=== PATIENT | female | born 1985 | race Two or more races ===

== ENCOUNTER 2025-04-27 11:17 | Inpatient (IN) | payer BC, OTHER ==
[~2025-04-27] VITALS: Ht 152.4 cm; Wt 79.4 kg
--- NOTE | 2025-04-27 11:35 | ED.PDOC ---
GI ASSESSMENT HPI Comments This is a 39 year old female presenting to the ED with chief complaint of abdominal pain. Patient reports that she has been experiencing epigastric abdominal pain with radiation to her back and associated nausea since 3am this morning. Patient relays that she had eaten greasy food last night and believes she is experiencing gallbladder pain. Patient states that she had similar pain 6 months ago after eating greasy food before going to bed. Patient denies any vomiting, diarrhea, fever, or chills. Chief Complaint: Abdominal Pain Time Seen by MD: 11:34 Reviewed Notes: Nurses Notes, Medications, Allergies Allergies: Coded Allergies: No Known Drug Allergy (Verified Allergy, Unknown, 04/27/25) Information Source: Patient Mode of Arrival: Ambulatory Timing: Days Duration: Since onset Prehospital treatment: None Quality: Sharp Vomitus: None Stool: Normal Severity: Moderate Recent: None Recent Hx of: None Pain Location: Epigastric Modifying Factors: Nothing Associated sign and symptoms: Nausea, Abdominal Pain Past Medical History PAST MEDICAL HISTORY: Denies Surgical History: Denies all surgeries BASS STRING WINDER History: No Pertinent BASS STRING WINDER History Family History Family History: Reviewed,noncontributory to illness Social History Smoker: Non-Smoker Alcohol: Denies ETOH Use Drugs: Denies Drug Use Lives In: Home Constitutional: denies: chills, diaphoresis, fatigue, fever, malaise, sweats, weakness, others EENTM: denies: blurred vision, double vision, ear bleeding, ear discharge, ear drainage, ear pain, ear ringing, eye pain, eye redness, hearing loss, mouth pain, mouth swelling, nasal discharge, nose bleeding, nose congestion, nose pain, photophobia, tearing, throat pain, throat swelling, voice changes, others Respiratory: denies: cough, hemoptysis, orthopnea, SOB at rest, shortness of breath, SOB with excertion, stridor, wheezing, others Cardiovascular: denies: chest pain, dizzy spells, diaphoresis, Dyspnea on exertion, edema, irregular heart beat, left arm pain, lightheadedness, palpitations, PND, syncope, others Gastrointestinal: reports: abdominal pain, nausea; denies: abdomen distended, blood streaked bowels, constipated, diarrhea, dysphagia, difficulty swallowing, hematemesis, melena, poor appetite, poor fluid intake, rectal bleeding, rectal p ain, vomiting, others Genitourinary: denies: abnormal vagina bleeding, burning, dyspareunia, dysuria, flank pain, frequency, hematuria, incontinence, pain, , vagina discharge, urgency, others Neurological: denies: dizziness, fainting, headache, left sided numbness, left sided weakness, numbness, paresthesia, pre-existing deficit, right sided numbness, right sided weakness, seizure, speech problems, tingling, tremors, weakness, others Musculoskeletal: denies: back pain, gout, joint pain, joint swelling, muscle pain, muscle stiffness, neck pain, others Integumetry: denies: bruises, change in color, change in hair/nails, dryness, laceration, lesions, lumps, rash, wounds, others Allergic/Immunocompromised: denies: Difficulty Healing, Frequent Infections, Hives, Itching, others Hematologic/Lymphatic: denies: anemia, blood clots, easy bleeding, easy bruising, swollen glands, others Endocrine: denies: excessive hunger, excessive sweating, excessive thirst, excessive urination, flushing, intolerance to cold, intolerance to heat, unexplained weight gain, unexplained weight loss, others Psychiatric: denies: anxiety, bipolar disorder, depression, hopeless, panic disorder, schizophrenia, sleepless, suicidal, others All Other Systems: Reviewed and Negative Physical Exam General Appearance: Moderate Distress, Normal HEENT: Normal ENT Inspection, Pharynx Normal, TMs Normal Neck: Full Range of Motion, Non-Tender, Normal, Normal Inspection Respiratory: Chest Non-Tender, Lungs Clear, No Accessory Muscle Use, No Respiratory Distress, Normal Breath Sounds Cardiovascular: No Edema, No JVD, No Murmur, No Gallop, Normal Peripheral Pulses, Regular Rate/Rhythm Breast Exam: Deferred Gastrointestinal: Diffuse, No Organomegaly, No Pulsatile Mass, Normal Bowel Sounds, Soft Genitalia: Deferred Pelvic: Deferred Rectal: Deferred Extremities: No calf tenderness, Normal capillary refill, Normal inspection, Normal range of motion, Non-tender, No pedal edema Musculoskeletal : Apperance: Normal Neurologic: Alert, sidehand II-XII nml as Tested, No Motor Deficits, Normal Affect, Normal Mood, No Sensory Deficits Cerebellar Function: Normal Reflexes: Normal Skin: Dry, Normal Color, Warm Peripheral Pulses: 3+ Radial (R), 3+ Radial (L) Lymphatic: No Adenopathy Was a procedure done? Was a procedure done?: No GI differential Dx Differential Diagnosis: Constipation, Diverticular disease, Esophagitis, Gastritis/PUD, Gastroenteritis X-Ray, Labs, Meds, VS Vital Signs Date Time Temp Pulse Resp B/P (MAP) Pulse Ox O2 Delivery O2 Flow Rate FiO2 04/27/25 13:45 64 20 136/84 04/27/25 13:30 64 20 100 Room Air* 0 21 04/27/25 13:30 98.0 64 20 136/84 (101) 100 98.0 04/27/25 11:18 97.1 65 16 130/91 98 97.1 Lab Test 04/27/25 12:57 04/27/25 11:49 Range/Units White Blood Count 13.4 H 4.4-10.8 10^3/uL Red Blood Count 4.87 4.0-5.20 10^6/uL Hemoglobin 14.8 12.2-16.2 g/dL Hematocrit 43.0 36.0-46.0 % Mean Corpuscular Volume 88.4 80.0-100.0 fL Mean Corpuscular Hemoglobin 30.5 28.0-32.0 pg Mean Corpuscular Hemoglobin Concent 34.5 32.0-36.0 g/dL Red Cell Distribution Width 13.8 11.8-14.3 % Platelet Count 328 140-450 10^3/uL Mean Platelet Volume 7.8 6.9-10.8 fL Neutrophils (%) (Auto) 86.7 H 37.0-80.0 % Lymphocytes (%) (Auto) 8.8 L 10.0-50.0 % Monocytes (%) (Auto) 3.2 0.0-12.0 % Eosinophils (%) (Auto) 0.3 0.0-7.0 % Basophils (%) (Auto) 1.0 0.0-2.0 % Neutrophils # (Auto) 11.6 H 1.6-8.6 10 ^3/uL Lymphocytes # (Auto) 1.2 0.4-5.4 10 ^3/uL Monocytes # (Auto) 0.4 0-1.3 10 ^3/uL Eosinophils # (Auto) 0 0-0.8 10 ^3/uL Basophils # (Auto) 0.1 0-0.2 10 ^3/uL Nucleated Red Blood Cells 0.0 % Sodium Level 136 136-145 mmol/L Potassium Level 4.2 3.5-5.1 mmol/L Chloride Level 102 98-107 mmol/L Carbon Dioxide Level 25 20-31 mmol/L Anion Gap 9 5-15 Blood Urea Nitrogen 8 L 9-23 mg/dL Creatinine 0.75 0.550-1.02 mg/dL Glomerular Filtration Rate Calc 104 >90 mL/min BUN/Creatinine Ratio 10.7 10.0-20.0 Serum Glucose 91 74-106 mg/dL Calcium Level 9.2 8.7-10.4 mg/dL Total Bilirubin 0.8 0.2-1.0 mg/dL Aspartate Amino Transferase (AST) 16 13-40 U/L Alanine Aminotransferase (ALT) 9 7-40 U/L Alkaline Phosphatase 77 46-116 U/L Total Protein 7.4 5.7-8.2 g/dL Albumin 4.4 3.2-4.8 g/dL Urine Color Light-yellow Yellow Urine Clarity Turbid H Clear Urine pH 7.5 5.0-9.0 Urine Specific [place] 1.020 1.001-1.035 Urine Protein Negative Negative Urine Ketones 1+ H Negative Urine Blood 3+ H Negative /uL Urine Nitrite Negative Negative Urine Bilirubin Negative Negative Urine Urobilinogen Normal Negative mg/dL Urine Leukocyte Esterase 1+ Negative /uL Urine RBC 4 0 - 4 /hpf Urine Microscopic WBC 8 H 0-5 /HPF Urine Squamous Epithelial Cells Mod <5 /hpf Urine Bacteria None seen None Seen /hpf Urine Glucose Normal Normal mg/dL Current Medications Medications (Trade) Dose Ordered Sig/[facility] Route Start Time Stop Time Status Last Admin Sodium Chloride 1,000 ml @ 1,000 mls/hr Q1H ONCE IV 04/27/25 13:00 04/27/25 13:59 DC 04/27/25 13:11 Ceftriaxone Sodium 50 ml @ 100 mls/hr ONCE ONCE IV 04/27/25 13:00 04/27/25 13:29 DC 04/27/25 13:14 Morphine Sulfate 2 mg ONCE ONCE IV 04/27/25 13:15 04/27/25 13:16 DC 04/27/25 13:45 Ondansetron HCl (Zofran) 4 mg ONCE ONCE IV 04/27/25 13:15 04/27/25 13:16 DC 04/27/25 13:45 Patient alert. Complaining of abdominal pain. Vitals stable. Answering questions. Abdomen is soft pain She continues to have abdominal pain. Establish intravenous access. Was given fluids. Was given morphine. Was given Zofran. Continue to monitor. Time of 1ST Reevaluation: 12:33 Reevaluation 1ST: Unchanged Patient Education/Counseling: Diagnosis, Treatment Family Education/Counseling: No Family Present SEPSIS Sepsis Screen Date sepsis recognized/suspect: Apr 27, 2025 Time Sepsis recognized/suspect: 1120 Recent Procedure: No On Antibiotic Therapy: No Respiratory Rate >20: No Heart Rate >90: No Temp<36 C (96.8 F) or >38.3 C: No SBP <90 or MAP <65 mmHG: No New Acute Mental Status Change: No Is the patient on CPAP, BIPAP,: No Physician Orders Ct Ab Pel Wo Con-No Oral Or Iv (04/27/25 13:38) * Surgical Consult (04/27/25 ) Vital Signs Date Time Temp Pulse Resp B/P (MAP) Pulse Ox O2 Delivery O2 Flow Rate FiO2 04/27/25 13:45 64 20 136/84 04/27/25 13:30 64 20 100 Room Air* 0 21 04/27/25 13:30 98.0 64 20 136/84 (101) 100 98.0 04/27/25 11:18 97.1 65 16 130/91 98 97.1 Laboratory Tests Test 04/27/25 12:57 White Blood Count 13.4 10^3/uL (4.4-10.8) H Medications Medications Dose Ordered Sig/Lisa Route Start Time Stop Time Status Last Admin Dose Admin Ceftriaxone Sodium 50 ml @ 100 mls/hr ONCE ONCE IV 04/27/25 13:00 04/27/25 13:29 DC 04/27/25 13:14 Morphine Sulfate 2 mg ONCE ONCE IV 04/27/25 13:15 04/27/25 13:16 DC 04/27/25 13:45 Ondansetron HCl 4 mg ONCE ONCE IV 04/27/25 13:15 04/27/25 13:16 DC 04/27/25 13:45 Sodium Chloride 1,000 ml @ 1,000 mls/hr Q1H ONCE IV 04/27/25 13:00 04/27/25 13:59 DC 04/27/25 13:11 Departure 1 Departure Time of Disposition: 12:46 Impression: Primary Impression: Appendicitis Qualified Codes: K35.80 - Unspecified acute appendicitis Additional Impressions: Acute abdominal pain Urinary tract infection Qualified Codes: N30.00 - Acute cystitis without hematuria Disposition: ADMITTED INPATIENT Admit to: Med Surg Condition: Guarded Critical Care Note Critical Care Time?: No Stability Stability form required: No Heart Score Heart Score: Heart Score Response (Comments) Value History N/A 0 EKG N/A 0 Age N/A 0 Risk Factors N/A 0 Troponin N/A 0 Total 0 I personally scribed for NATAHN HERNDON MD ([email or web address]) on 04/27/25 at 11:35. Electronically submitted by Imer Weinberg ([email or web address]). NATHAN HERNDON MD Apr 27, 2025 11:35
[2025-04-27 12:29] LABS: Urine Protein, UAD Negative (Negative)
[2025-04-27] MEDS: SODIUM CHLORIDE 0.9% 1,000 ML IV ONE (13:11)
[2025-04-27 13:21] LABS: Hematocrit 43.0 % (36.0-46.0); Hemoglobin 14.8 g/dL (12.2-16.2); Mean Corpuscular Hemoglobin 30.5 pg (28.0-32.0); Mean Corpuscular Volume 88.4 fL (80.0-100.0); Nucleated Red Blood Cells % 0.0 %
[2025-04-27 13:30] VITALS: PULSE 64; RESP 20; O2SAT 100
[2025-04-27 13:38] LABS: Albumin 4.4 g/dL (3.2-4.8); Alkaline Phosphatase 77 U/L (46-116); Anion Gap 9 (5-15); BUN/Creatinine Ratio 10.7 (10.0-20.0); Calcium 9.2 mg/dL (8.7-10.4); Carbon Dioxide 25 mmol/L (20-31); Chloride 102 mmol/L (98-107); Glucose 91 mg/dL (74-106); Potassium 4.2 mmol/L (3.5-5.1); Sodium 136 mmol/L (136-145); Total Protein 7.4 g/dL (5.7-8.2)
[2025-04-27 13:39] LABS: Bilirubin, Total 0.8 mg/dL (0.2-1.0)
[2025-04-27 13:41] LABS: Alanine Aminotransferase 9 U/L (7-40); Blood Urea Nitrogen 8 mg/dL (9-23)
[2025-04-27] MEDS: ONDANSETRON HCL 4 MG/2 ML VIAL IV ONE (13:45)
[2025-04-27] MEDS: MORPHINE SULFATE INJ 2 MG/ml SYRG IV ONE (13:45)
--- NOTE | 2025-04-27 14:54 | DVH ---
EXAM: CT CT AB PEL WO CON-NO ORAL OR IV INDICATION: colitis TECHNIQUE: Volumetric multidetector CT images of the abdomen and pelvis were obtained without contras t. All CT scans at this facility use dose modulation, iterative reconstruction, and/or weight based d osing when appropriate to reduce radiation dose to as low as reasonably achievable. COMPARISON: None FINDINGS: [LOWER CHEST]: The partially visualized lung bases are clear without a pleural effusion. The cardiac size is normal without pericardial effusion. [LIVER]: Normal hepatic size without suspicious focal lesion. [GALLBLADDER AND BILIARY TREE]: No cholelithiasis. [SPLEEN]: Unremarkable. [PANCREAS]: Unremarkable. [ADRENAL GLANDS]: Unremarkable [KIDNEYS]: No hydronephrosis. No nephroureterolithiasis. [BLADDER]: Unremarkable for the degree distention. [REPRODUCTIVE ORGANS]: IUD in place [BOWEL/MESENTERY]: Stomach is normal. Mild stool burden. Appendix is slightly dilated measuring up to 8 mm in correlate with clinical exam. Appendicolith at the base. Low-grade appendicitis not exclude d. [ASCITES]: Absent [LYMPHADENOPATHY]: No pathologically enlarged lymph nodes by CT size criteria [VASCULATURE]: No aneurysmal dilatation. [ABDOMINAL WALL]: Unremarkable. [MUSCULOSKELETAL]: No acute fracture or aggressive focal osseous lesion. IMPRESSION: 1. Question low-grade appendicitis.
[2025-04-27] MEDS ORDERED: MORPHINE SULFATE INJ 2 MG/ml SYRG IV PRN (16:00)
[2025-04-27] MEDS ORDERED: ACETAMINOPHEN 325 MG TAB PO PRN (16:00)
--- NOTE | 2025-04-27 16:05 | DVHHPRES ---
History of Present Illness Resident Creating Document: JOSEPH MCCLELLAN RESIDENT History of Present Illness ELIEL ARAUZ is a 13 years old female with no significant PMH presented to the ED with the chief complaints of severe abdominal pain which started 3 a.m. today moaning. Patient reported she remembered that she had a greasy food last night, woke up in the middle of the night at 3:00 a.m. with a severe abdominal pain in epigastric region radiating to back associated with a severe nausea but denies vomiting. Patient denied other associated symptoms at this time. PMH: None PSH: None Family history: Noncontributory Personal history: lives at home. Smokes marijuana and occasional alcohol use but denies illicit drug abuse Allergies: Not known Home medications: None Patient seen and examined at the bedside. Patient currently reporting pain in the abdomen and nausea but no vomiting at this time. Review of Systems Allergies: Coded Allergies: No Known Drug Allergy (Verified Allergy, Unknown, 04/27/25) Medications Current Medications Medications Dose Ordered Sig/Lisa Route Start Time Stop Time Status Last Admin Dose Admin Sodium Chloride 10 ml Q8HR IV 04/27/25 22:00 Sodium Chloride 1,000 ml @ 120 mls/hr Q8H20M IV 04/27/25 16:00 Ondansetron HCl 4 mg Q4HP PRN IV 04/27/25 16:00 Enoxaparin Sodium 40 mg DAILY SC 04/28/25 10:00 Acetaminophen 650 mg Q6HP PRN PO 04/27/25 16:00 Morphine Sulfate 2 mg Q4HPRN PRN IV 04/27/25 16:00 Exam Vital Signs Vital Signs Date Time Temp Pulse Resp B/P (MAP) Pulse Ox O2 Delivery O2 Flow Rate FiO2 04/27/25 13:45 64 20 136/84 04/27/25 13:30 100 Room Air* 0 21 04/27/25 13:30 98.0 98.0 Exam Pt is lying on bed General Appearance: Alert, Oriented X3, Cooperative, Not in acute distress HEENT: Atraumatic, Mucous membranes moist/pink Respiratory: Clear to auscultation, Normal air movement, No added sounds Cardiovascular: Regular rate, Normal S1, Normal S2, No murmurs Abdominal: Right lower quadrant tenderness but no guarding/rigidity. Active bowel sounds, Soft, no distention Extremities: No edema, Normal pulses, No tenderness/swelling Skin: No Significant rash, except past surgical scars Neuro: Normal speech, sensorimotor deficits none Psych/Mental Status: Mental status NL, Mood NL Nurse was there as leasing consultant during examination Labs/Xrays Labs Test 04/27/25 12:57 04/27/25 11:49 Range/Units White Blood Count 13.4 H 4.4-10.8 10^3/uL Red Blood Count 4.87 4.0-5.20 10^6/uL Hemoglobin 14.8 12.2-16.2 g/dL Hematocrit 43.0 36.0-46.0 % Mean Corpuscular Volume 88.4 80.0-100.0 fL Mean Corpuscular Hemoglobin 30.5 28.0-32.0 pg Mean Corpuscular Hemoglobin Concent 34.5 32.0-36.0 g/dL Red Cell Distribution Width 13.8 11.8-14.3 % Platelet Count 328 140-450 10^3/uL Mean Platelet Volume 7.8 6.9-10.8 fL Neutrophils (%) (Auto) 86.7 H 37.0-80.0 % Lymphocytes (%) (Auto) 8.8 L 10.0-50.0 % Monocytes (%) (Auto) 3.2 0.0-12.0 % Eosinophils (%) (Auto) 0.3 0.0-7.0 % Basophils (%) (Auto) 1.0 0.0-2.0 % Neutrophils # (Auto) 11.6 H 1.6-8.6 10 ^3/uL Lymphocytes # (Auto) 1.2 0.4-5.4 10 ^3/uL Monocytes # (Auto) 0.4 0-1.3 10 ^3/uL Eosinophils # (Auto) 0 0-0.8 10 ^3/uL Basophils # (Auto) 0.1 0-0.2 10 ^3/uL Nucleated Red Blood Cells 0.0 % Sodium Level 136 136-145 mmol/L Potassium Level 4.2 3.5-5.1 mmol/L Chloride Level 102 98-107 mmol/L Carbon Dioxide Level 25 20-31 mmol/L Anion Gap 9 5-15 Blood Urea Nitrogen 8 L 9-23 mg/dL Creatinine 0.75 0.550-1.02 mg/dL Glomerular Filtration Rate Calc 104 >90 mL/min BUN/Creatinine Ratio 10.7 10.0-20.0 Serum Glucose 91 74-106 mg/dL Calcium Level 9.2 8.7-10.4 mg/dL Total Bilirubin 0.8 0.2-1.0 mg/dL Aspartate Amino Transferase (AST) 16 13-40 U/L Alanine Aminotransferase (ALT) 9 7-40 U/L Alkaline Phosphatase 77 46-116 U/L Total Protein 7.4 5.7-8.2 g/dL Albumin 4.4 3.2-4.8 g/dL Urine Color Light-yellow Yellow Urine Clarity Turbid H Clear Urine pH 7.5 5.0-9.0 Urine Specific [place] 1.020 1.001-1.035 Urine Protein Negative Negative Urine Ketones 1+ H Negative Urine Blood 3+ H Negative /uL Urine Nitrite Negative Negative Urine Bilirubin Negative Negative Urine Urobilinogen Normal Negative mg/dL Urine Leukocyte Esterase 1+ Negative /uL Urine RBC 4 0 - 4 /hpf Urine Microscopic WBC 8 H 0-5 /HPF Urine Squamous Epithelial Cells Mod <5 /hpf Urine Bacteria None seen None Seen /hpf Urine Glucose Normal Normal mg/dL SEPSIS Sepsis Screen Date sepsis recognized/suspect: Apr 27, 2025 Time Sepsis recognized/suspect: 112 Recent Procedure: No On Antibiotic Therapy: No Respiratory Rate >20: No Heart Rate >90: No Temp<36 C (96.8 F) or >38.3 C: No SBP <90 or MAP <65 mmHG: No New Acute Mental Status Change: No Is the patient on CPAP, BIPAP,: No Physician Orders Ct Ab Pel Wo Con-No Oral Or Iv (04/27/25 13:38) Admit (04/27/25 15:47) Allergies (04/27/25 15:47) Code Status (04/27/25 15:47) Sodium Chloride Lock (Saline Lock Ns) (04/27/25 22:00) Sodium Chloride 0.9% (04/27/25 16:00) Ondansetron Hcl (Zofran) (04/27/25 16:00) Enoxaparin Sodium (Lovenox) (04/28/25 10:00) Complete Blood Count (04/28/25 04:00) Comprehensive Metabolic Panel (04/28/25 04:00) Condition: Fair (04/27/25 15:47) Acetaminophen Tablet (Tylenol Tablet) (04/27/25 16:00) Morphine Sulfate Injection (04/27/25 16:00) Chest Portable (04/27/25 15:53) * Surgical Consult (04/27/25 15:53) Blood Alcohol (04/27/25 15:53) Drug Screen (04/27/25 15:53) Lactic Acid W/ Reflex Order (04/27/25 15:53) Lipase (04/27/25 15:53) Magnesium (04/27/25 15:53) PTPTT (04/27/25 15:53) Thyroid Stimulating Hormone (04/27/25 15:53) Urine Bacterial Culture (04/27/25 15:53) Beta Hcg, Quantitative (04/27/25 15:53) Full Liq Diet (04/27/25 Dinner) Npo (Nothing By Mouth) Diet (04/28/25 Breakfast) Ceftriaxone Ivpb Rocephin (04/28/25 09:00) Ceftriaxone Ivpb Rocephin (04/27/25 16:15) Metronidazole Ivpb Flagyl (04/27/25 22:00) Vital Signs Date Time Temp Pulse Resp B/P (MAP) Pulse Ox O2 Delivery O2 Flow Rate FiO2 04/27/25 13:45 64 20 136/84 04/27/25 13:30 64 20 100 Room Air* 0 21 04/27/25 13:30 98.0 64 20 136/84 (101) 100 98.0 04/27/25 11:18 97.1 65 16 130/91 98 97.1 Laboratory Tests Test 04/27/25 12:57 White Blood Count 13.4 10^3/uL (4.4-10.8) H Medications Medications Dose Ordered Sig/Lisa Route Start Time Stop Time Status Last Admin Dose Admin Ceftriaxone Sodium 50 ml @ 100 mls/hr ONCE ONCE IV 04/27/25 13:00 04/27/25 13:29 DC 04/27/25 13:14 100 MLS/HR Morphine Sulfate 2 mg ONCE ONCE IV 04/27/25 13:15 04/27/25 13:16 DC 04/27/25 13:45 2 MG Ondansetron HCl 4 mg ONCE ONCE IV 04/27/25 13:15 04/27/25 13:16 DC 04/27/25 13:45 4 MG Sodium Chloride 1,000 ml @ 1,000 mls/hr Q1H ONCE IV 04/27/25 13:00 04/27/25 13:59 DC 04/27/25 13:11 1,000 MLS/HR Assessment/Plan Assessment/Plan # Possible acute appendicitis # Probable SIRS, leukocytosis likely due to reactive - Med surge - supportive management with morphine and Zofran - CT abdominal pelvis showed Appendix is slightly dilated measuring up to 8 mm in correlate with clinical exam. Appendicolith at the base. Low-grade appendicitis not excluded. - NPO after midnight - Rocephin and flagyl - surgical consult # Obesity class 1 with a BMI 32, given advised regarding lifestyle modifications including diet and exercise # Marijuana use disorder, counseled regarding cessation for more than 17 minutes GI PPX: Protonix VTE ppx: Lovenox Diet: NPO after midnight Goals of care addressed with the patient for more than 27 minutes: Full code status Case discussed with Dr. Dukes, patient and nurse Plan discussed with: Patient My Orders Orders - JOSEPH MCCLELLAN RESIDENT Procedure Category Date Status Time Admit ADMIT 04/27/25 Transmitted 15:47 Allergies CHATO 04/27/25 In Process 15:47 Code Status CODE 04/27/25 Transmitted 15:47 Sodium Chloride Lock PHA 04/27/25 In Process (Saline Lock Ns) 22:00 Sodium Chloride 0.9% PHA 04/27/25 In Process 16:00 Ondansetron Hcl PHA 04/27/25 In Process (Zofran) 16:00 Enoxaparin Sodium PHA 04/28/25 In Process (Lovenox) 10:00 Complete Blood Count LAB 04/28/25 Verified 04:00 Comprehensive LAB 04/28/25 Verified Metabolic Panel 04:00 Condition: Fair CHATO 04/27/25 In Process 15:47 Acetaminophen Tablet PHA 04/27/25 In Process (Tylenol Tablet) 16:00 Morphine Sulfate PHA 04/27/25 In Process Injection 16:00 Chest Portable XY 04/27/25 Logged 15:53 * Surgical Consult CONS 04/27/25 Transmitted 15:53 Blood Alcohol LAB 04/27/25 Logged 15:53 Drug Screen LAB 04/27/25 Logged 15:53 Lactic Acid W/ Reflex LAB 04/27/25 Logged Order 15:53 Lipase LAB 04/27/25 Logged 15:53 Magnesium LAB 04/27/25 Logged 15:53 PTPTT LAB 04/27/25 Logged 15:53 Thyroid Stimulating LAB 04/27/25 Logged Hormone 15:53 Urine Bacterial JUSTINE 04/27/25 Logged Culture 15:53 Beta Hcg, Quantitative LAB 04/27/25 Logged 15:53 Full Liq Diet DIET 04/27/25 Transmitted Dinner Npo (Nothing By DIET 04/28/25 Transmitted Mouth) Diet Breakfast Ceftriaxone Ivpb PHA 04/28/25 Verified Rocephin 09:00 Ceftriaxone Ivpb PHA 04/27/25 Verified Rocephin 16:15 Metronidazole Ivpb PHA 04/27/25 Verified Flagyl 22:00 JOSEPH MCCLELLAN RESIDENT Apr 27, 2025 16:05
--- NOTE | 2025-04-27 16:23 | DVHINCON2 ---
Consultation - Surgical Date Seen: Apr 27, 2025 Referring Physician Reason for Consultation Acute appendicitis History of Present Illness History of Present Illness Mrs. Lindsay is a 39-year-old female who presented to the ED with right lower quadrant pain that started last night around 3:00 a.m. and has continued to get worse. Patient thinks that the pain was aggravated due to a greasy meal that she had. Upon questioning if she has any epigastric or right upper quadrant pain, she has none. She has been feeling nauseous without vomiting. Denies fevers chills changes in urinary or stooling habits. Past Medical/Surgical History Past Medical/Surgical History PMH/PSH denies Family and Social History Family and Social History ETOH occasional TOB denies Drugs marijuana Family history noncontributory Allergies and medications Allergies: Coded Allergies: No Known Drug Allergy (Verified Allergy, Unknown, 04/27/25) Review of systems Review of Systems: HEENT:Normal, CVS:Normal, RESPIRATORY:Normal, GI:Abnormal (See HPI), :Normal, MSK:Normal, NEURO:Normal Examination Vital signs Vital Signs Date Time Temp Pulse Resp B/P (MAP) Pulse Ox O2 Delivery O2 Flow Rate FiO2 04/27/25 15:56 76 18 126/64 04/27/25 13:30 100 Room Air* 0 21 04/27/25 13:30 98.0 98.0 Medications Current Medications Medications (Trade) Dose Ordered Sig/Lisa Route PRN Reason Start Time Stop Time Status Last Admin Sodium Chloride (Saline Lock Ns) 10 ml Q8HR IV 04/27/25 22:00 Sodium Chloride 1,000 ml @ 120 mls/hr Q8H20M IV 04/27/25 16:00 Ondansetron HCl (Zofran) 4 mg Q4HP PRN IV NAUSEA / VOMITING 04/27/25 16:00 Enoxaparin Sodium (Lovenox) 40 mg DAILY SC 04/28/25 10:00 Acetaminophen (Tylenol Tablet) 650 mg Q6HP PRN PO PAIN SCALE 1-3 OR TEMP>100.4 04/27/25 16:00 Morphine Sulfate 2 mg Q4HPRN PRN IV SEVERE PAIN (7-10 PAIN SCALE) 04/27/25 16:00 Ceftriaxone Sodium 50 ml @ 100 mls/hr DAILY@09 IV 04/28/25 09:00 UNV Metronidazole 100 ml @ 100 mls/hr Q8HR IV 04/27/25 22:00 UNV Laboratory Labs Test 04/27/25 12:57 04/27/25 11:49 Range/Units White Blood Count 13.4 H 4.4-10.8 10^3/uL Red Blood Count 4.87 4.0-5.20 10^6/uL Hemoglobin 14.8 12.2-16.2 g/dL Hematocrit 43.0 36.0-46.0 % Mean Corpuscular Volume 88.4 80.0-100.0 fL Mean Corpuscular Hemoglobin 30.5 28.0-32.0 pg Mean Corpuscular Hemoglobin Concent 34.5 32.0-36.0 g/dL Red Cell Distribution Width 13.8 11.8-14.3 % Platelet Count 328 140-450 10^3/uL Mean Platelet Volume 7.8 6.9-10.8 fL Neutrophils (%) (Auto) 86.7 H 37.0-80.0 % Lymphocytes (%) (Auto) 8.8 L 10.0-50.0 % Monocytes (%) (Auto) 3.2 0.0-12.0 % Eosinophils (%) (Auto) 0.3 0.0-7.0 % Basophils (%) (Auto) 1.0 0.0-2.0 % Neutrophils # (Auto) 11.6 H 1.6-8.6 10 ^3/uL Lymphocytes # (Auto) 1.2 0.4-5.4 10 ^3/uL Monocytes # (Auto) 0.4 0-1.3 10 ^3/uL Eosinophils # (Auto) 0 0-0.8 10 ^3/uL Basophils # (Auto) 0.1 0-0.2 10 ^3/uL Nucleated Red Blood Cells 0.0 % Sodium Level 136 136-145 mmol/L Potassium Level 4.2 3.5-5.1 mmol/L Chloride Level 102 98-107 mmol/L Carbon Dioxide Level 25 20-31 mmol/L Anion Gap 9 5-15 Blood Urea Nitrogen 8 L 9-23 mg/dL Creatinine 0.75 0.550-1.02 mg/dL Glomerular Filtration Rate Calc 104 >90 mL/min BUN/Creatinine Ratio 10.7 10.0-20.0 Serum Glucose 91 74-106 mg/dL Calcium Level 9.2 8.7-10.4 mg/dL Total Bilirubin 0.8 0.2-1.0 mg/dL Aspartate Amino Transferase (AST) 16 13-40 U/L Alanine Aminotransferase (ALT) 9 7-40 U/L Alkaline Phosphatase 77 46-116 U/L Total Protein 7.4 5.7-8.2 g/dL Albumin 4.4 3.2-4.8 g/dL Urine Color Light-yellow Yellow Urine Clarity Turbid H Clear Urine pH 7.5 5.0-9.0 Urine Specific [place] 1.020 1.001-1.035 Urine Protein Negative Negative Urine Ketones 1+ H Negative Urine Blood 3+ H Negative /uL Urine Nitrite Negative Negative Urine Bilirubin Negative Negative Urine Urobilinogen Normal Negative mg/dL Urine Leukocyte Esterase 1+ Negative /uL Urine RBC 4 0 - 4 /hpf Urine Microscopic WBC 8 H 0-5 /HPF Urine Squamous Epithelial Cells Mod <5 /hpf Urine Bacteria None seen None Seen /hpf Urine Glucose Normal Normal mg/dL Examination: GENERAL:Abnormal (Visibly in pain), ABDOMEN:Abnormal (Soft, depressible, no scars, no hernias, right lower quadrant tenderness, no rebound, no guarding, negative Rovsing sign) Problem List/Assessment/Plan Problems: (1) Appendicitis Assessment and Plan Mrs. Lindsay is a 39-year-old female who presents with acute appendicitis, with symptoms starting this a.m. around 3. Patient presented with a leukocytosis of 13. CT images were seen and is shows an enlarged appendix with a fecalith at its base. This findings were consistent with acute appendicitis. Patient will benefit from laparoscopic appendectomy. Procedure, risks, benefits, complications, and alternatives were discussed with the patient. Patient agrees with surgical plan. 1. On-call to OR for laparoscopic appendectomy, possible open 2. Continue with IV antibiotics 3. Pain and nausea control 4. Bowel regimen Plan discussed with Plan discussed with: Patient Visit Coding Surgery Date of Service if different f: Apr 27, 2025 Billing Provider: SHOLA RIOS MD Surgery Visit Codes: [id number] - INP CONSULT <110 MIN SHOLA RIOS MD Apr 27, 2025 16:23
--- NOTE | 2025-04-27 16:25 | DVH ---
CHEST RADIOGRAPH REASON FOR EXAM: pre op COMPARISON: None TECHNIQUE: One view of the chest is provided FINDINGS: The cardiomediastinal silhouette is within normal limits for technique. There is no focal a irspace disease. There is no significant pleural effusion. No acute bony abnormality is identified. IMPRESSION: No radiographic evidence of acute cardiopulmonary process.
[2025-04-27 16:33] LABS: Thyroid Stimulating Hormone 1.69 uIU/mL (0.55-4.78)
[2025-04-27 16:35] LABS: Beta HCG, Quantitative < 0.0 mIU/mL (1.5-4.2)
[2025-04-27 16:53] LABS: INR 0.99 (0.9-1.15); Partial Thromboplastin Time 32.9 SEC (24.5-34.5); Prothrombin Time 10.5 sec (9.3-11.8)
[2025-04-27] MEDS ORDERED: KETAMINE 50mg/ML 1ml syringe ONE (17:07)
[2025-04-27] MEDS ORDERED: PROPOFOL 10 MG/ML 20 ML IV ONE (17:07)
[2025-04-27] MEDS ORDERED: LIDOCAINE 2% (LOCAL ANESTH.) PF 5ml SDV ONE (17:07)
[2025-04-27] MEDS ORDERED: KETOROLAC TROMETH 30 MG/ML 1ML VIAL ONE (17:07)
[2025-04-27] MEDS ORDERED: HYDROmorphone HCL 2 MG/ML VL/or syr ONE (17:07)
[2025-04-27] MEDS ORDERED: GLYCOPYRROLATE 0.2 MG/ML 1ML VIAL ONE (17:07)
[2025-04-27] MEDS ORDERED: fentaNYL CITRATE 100 MCG/2 ML VL ONE (17:07)
[2025-04-27] MEDS ORDERED: MIDAZOLAM HCL 2MG/2ML 2ml VIAL (1mg/ml) ONE (17:07)
[2025-04-27] MEDS: ceFAZolin 1GM/50ML 100 ML IV ONE (17:20)
[2025-04-27] MEDS: BUPIVACAINE 0.25% INJ 50ML VIAL ONE (17:32)
[2025-04-27] MEDS ORDERED: SUGAMMADEX 200mg/2ml Vial (100MG/ML) IV ONE (18:07)
[2025-04-27] MEDS ORDERED: HYDROcodone-ACET 10/325MG TAB PO PRN (18:15)
[2025-04-27] MEDS ORDERED: HYDROcodone-ACET 5/325MG TAB PO PRN (18:15)
--- NOTE | 2025-04-27 18:28 | DVHOP2 ---
Operative Report - 2 Report Details Date: 04/27/25 Preop Diagnosis: Acute appendicitis Postop Diagnosis: Same Surgeon: Richard Bradford MD Electrification Adviser: Albino White NP Anesthesiologist: Dr. Crow Anesthesia: General Consent: The patient was informed of the risks and benefits of the procedure. These include but are not limited to complications of anesthesia, postoperative infection, incomplete relief of symptoms, recurrence of symptoms, damage to blood vessels, nerves and tendons, deep venous thrombosis, pulmonary embolism and possible need for repeat surgery in the future. Complications: None Estimated Blood Loss: 5 mL Findings: Acutely inflamed appendix, not perforated, non gangrenous, Indications for Surgery: Acute appendicitis with appendicolith on imaging Name of Procedure Performed Laparoscopic appendectomy Procedure Details Procedure Details: Upon arriving to the operating room the patient was transferred to the operating table and placed in the supine position with arms extended. General endotracheal anesthesia was induced. Time-out was observed. Patient was prepped and draped in the standard sterile surgical fashion with chlorhexidine. I 1st made an infraumbilical curvilinear incision. I then bluntly dissected down the umbilical stalk to the fascia. Umbilical stalk was walked down using Mariel clamps, and once at its base I entered the peritoneal cavity using Alvin technique. I then placed a [id number] suture at the fascial defect, with 0 Vicryl. I then inserted the Alvin cannula and insufflated the peritoneal c avity to 15 mmHg with toleration. Camera was then inserted into the peritoneal cavity and cavity was surveyed for any gross pathology. None was immediately noticeable. I then placed 2 additional 5 mm trocars at the suprapubic area and the left lower quadrant. Patient was then placed in the Trendelenburg position with the right side up. Small bowel was swept aside and the leaf of Treves was identified. The base of the appendix was then grasped. The appendix appeared to be acutely inflamed in the distal 3rd of the appendix was very indurated. There was no gangrene or perforation of the appendix. I then proceeded to make a mesenteric rent at the base of the appendix. I then stapled off the base of the appendix with a 45 mm white load x2, Endo-AGUSTIN. I then stapled off the mesoappendix with a 45 mm white load, Endo-AGUSTIN. The appendix was then placed in the Endo-Catch bag and removed from the peritoneal cavity. I then proceeded to inspect the staple lines, and noted some slow oozing coming from the mesenteric staple line. I placed several 10 mm clips along the mesenteric staple line. Hemostasis was achieved. I then surveyed the pelvis and there was minimal inflammatory fluid in the pelvis that was suctioned. I then made a 2nd look at the staple lines, both of them were intact and no bleeding was observed. At this point we concluded the operation. All counts complete and correct. I then removed the 2, 5 mm trocars under direct visualization. The abdominal cavity was allowed to desufflate. I then closed the previously placed fascial retention suture, fascia was successfully reapproximated. All skin incisions were closed with 4-0 Monocryl, Dermabond, and Steri-Strips. Patient tolerated the procedure well was transferred to PACU in stable condition. Condition Stable Disposition Still a Patient RICHARD RIOS MD Apr 27, 2025 18:28
[2025-04-27 18:40] VITALS: PULSE 109; RESP 15; O2SAT 98
[2025-04-27] MEDS ORDERED: ONDANSETRON HCL 4 MG/2 ML VIAL IV PRN (19:00)
[2025-04-27] MEDS ORDERED: HYDROmorphone HCL 2 MG/ML VL/or syr IV PRN (19:00)
[2025-04-27 19:25] VITALS: PULSE 70; RESP 13; O2SAT 98
[2025-04-27] MEDS: ACETAMINOPHEN IV 1000 MG/100ML (10MG/ML) IV ONE (19:40)
[2025-04-27 20:05] VITALS: BP 115/73; PULSE 64; RESP 17; TEMP 97.6; O2SAT 98
[2025-04-27 20:24] LABS: Lipase 30 U/L (12-53); Magnesium 1.7 mg/dL (1.6-2.6)
[2025-04-27 21:08] VITALS: BP 115/73; PULSE 64; RESP 17; TEMP 97.6; O2SAT 98
[2025-04-27] MEDS: SODIUM CHLOR 0.9% PF (SALINE LOCK) 10ML VIAL/SYR IV SCH (21:28)
[2025-04-27 21:53] LABS: Cannabinoid Screen, Urine Pos (NEGATIVE)
[2025-04-27 21:57] LABS: Amphetamine Screen, Urine Neg (NEGATIVE); Barbiturate Scree,Urine Neg (NEGATIVE); Benzodiazephine Screen, Urine Neg (NEGATIVE); Cocaine Screen, Urine Neg (NEGATIVE); Opiate Scree,Urine Neg (NEGATIVE); Phencyclidine Screen, Urine Neg (NEGATIVE)
[2025-04-27] MEDS: IBUPROFEN 600 MG TAB PO SCH (22:00)
[2025-04-28] VITALS (7 sets, daily range): BP systolic 96–118; BP diastolic 63–68; PULSE 66–93; RESP 15–18; TEMP 97.6–98.4; O2SAT 96–100
[2025-04-28] MEDS: ACETAMINOPHEN 325 MG TAB PO SCH
[2025-04-28] MEDS: SODIUM CHLORIDE 0.9% 1,000 ML IV SCH (00:20)
[2025-04-28] MEDS: ONDANSETRON HCL 4 MG/2 ML VIAL IV PRN (04:46)
[2025-04-28] MEDS: CEFEPIME 1GM/50ML 0 ML IV ONE (07:27)
[2025-04-28 08:12] LABS: Hematocrit 37.7 % (36.0-46.0); Hemoglobin 13.0 g/dL (12.2-16.2); Mean Corpuscular Hemoglobin 30.4 pg (28.0-32.0); Mean Corpuscular Volume 88.0 fL (80.0-100.0); Nucleated Red Blood Cells % 0.0 %
[2025-04-28 08:33] LABS: Alkaline Phosphatase 66 U/L (46-116); Anion Gap 7 (5-15); BUN/Creatinine Ratio 10.5 (10.0-20.0); Calcium 8.7 mg/dL (8.7-10.4); Carbon Dioxide 23 mmol/L (20-31); Potassium 4.2 mmol/L (3.5-5.1); Sodium 139 mmol/L (136-145); Total Protein 6.3 g/dL (5.7-8.2)
[2025-04-28 08:34] LABS: Albumin 3.8 g/dL (3.2-4.8)
[2025-04-28 08:35] LABS: Bilirubin, Total 0.5 mg/dL (0.2-1.0)
[2025-04-28 08:51] LABS: Alanine Aminotransferase < 9 U/L (7-40); Blood Urea Nitrogen 6 mg/dL (9-23); Chloride 109 mmol/L (98-107); Glucose 125 mg/dL (74-106)
--- NOTE | 2025-04-28 09:45 | DVHPNRES ---
Progress Note Date Seen: Apr 28, 2025 Resident Creating Document: JOSEPH MCCLELLAN RESIDENT Medical Necessity Reason Pt with a Central, PICC or Fol: No Subjective Review of Systems Patient seen and examined at the bedside. Overnight events reviewed no new complaints reported except mild pain after the procedure. Status post day 1 laparoscopic appendectomy, patient tolerated the procedure well. No gas passed. Patient reports: No new complaints, Feels better Objective vital signs Vital Sign Date Time Temp Pulse Resp B/P (MAP) Pulse Ox O2 Delivery O2 Flow Rate FiO2 04/28/25 08:00 Room Air* 0 21 04/28/25 05:00 97.6 93 17 98/68 (78 96 97.6 Total Intake and Output 04/27/25 04/27/25 04/28/25 15:00 23:00 07:00 Intake Total 100 ml 150 ml Balance 100 ml 150 ml medications Current Medications Medications Dose Ordered Sig/Lisa Route Start Time Stop Time Status Last Admin Dose Admin Sodium Chloride 10 ml Q8HR IV 04/27/25 22:00 04/28/25 05:12 10 ML Sodium Chloride 1,000 ml @ 120 mls/hr Q8H20M IV 04/27/25 16:00 04/28/25 00:20 120 MLS/HR Ondansetron HCl 4 mg Q4HP PRN IV 04/27/25 16:00 04/28/25 04:46 4 MG Enoxaparin Sodium 40 mg DAILY SC 04/28/25 10:00 Ceftriaxone Sodium 50 ml @ 100 mls/hr DAILY@09 IV 04/28/25 09:00 Metronidazole 100 ml @ 100 mls/hr Q8HR IV 04/27/25 22:00 04/28/25 05:10 100 MLS/HR Acetaminophen 650 mg Q6HR PO 04/28/25 00:00 04/28/25 05:10 650 MG Ibuprofen 600 mg TID PO 04/27/25 22:00 Acetaminophen/ Hydrocodone Bitart 1 tab Q6HP PRN PO 04/27/25 18:15 Polyethylene Glycol 17 gm DAILY PO 04/28/25 10:00 Acetaminophen/ Hydrocodone Bitart 1 tab Q6HPRN PRN PO 04/27/25 21:00 Examination Pt is lying on bed General Appearance: Alert, Oriented X3, Cooperative, Not in acute distress HEENT: Atraumatic, Mucous membranes moist/pink Respiratory: Clear to auscultation, Normal air movement, No added sounds Cardiovascular: Regular rate, Normal S1, Normal S2, No murmurs Abdominal: Generalized abdominal tenderness, intact laparoscopic wound ramos without infection/inflammation. Active bowel sounds, Soft, Extremities: No edema, Normal pulses, No tenderness/swelling Skin: No Significant rash, except past surgical scars Neuro: Normal speech, sensorimotor deficits none Psych/Mental Status: Mental status NL, Mood NL Nurse was there as chemical operator during examination laboratory and microbiology Laboratory Tests 04/28/25 06:47 Test 04/28/25 06:47 Range/Units Serum Glucose 125 H 74-106 mg/dL Labs and/or images reviewed: Labs reviewed by me, Image(s) reviewed by me Problem List/Assessment/Plan Problem List/Assessment/Plan # Possible acute appendicitis # Probable SIRS, leukocytosis likely due to reactive - Med surge - supportive management with morphine and Zofran - CT abdominal pelvis showed Appendix is slightly dilated measuring up to 8 mm in correlate with clinical exam. Appendicolith at the base. Low-grade appendicitis not excluded. - Rocephin and flagyl - surgical consult - status post laparoscopic appendectomy without complications - advanced diet as tolerated # Obesity class 1 with a BMI 32, given advised regarding lifestyle modifications including diet and exercise # Marijuana use disorder, counseled regarding cessation for more than 17 minutes GI PPX: Protonix VTE ppx: Lovenox Diet: Regular diet advanced as tolerated Goals of care addressed with the patient for more than 27 minutes: Full code status Case discussed with Dr. Dukes, patient and nurse Plan discussed with: Patient My Orders My Orders Orders - JOSEPH MCCLELLAN RESIDENT Procedure Category Date Status Time Admit ADMIT 04/27/25 Transmitted 15:47 Allergies CHATO 04/27/25 In Process 15:47 Code Status CODE 04/27/25 Transmitted 15:47 Sodium Chloride Lock PHA 04/27/25 In Process (Saline Lock Ns) 22:00 Sodium Chloride 0.9% PHA 04/27/25 In Process 16:00 Ondansetron Hcl PHA 04/27/25 In Process (Zofran) 16:00 Enoxaparin Sodium PHA 04/28/25 In Process (Lovenox) 10:00 Condition: Fair CHATO 04/27/25 In Process 15:47 Chest Portable XY 04/27/25 Resulted 15:53 * Surgical Consult CONS 04/27/25 Transmitted 15:53 Urine Bacterial JUSTINE 04/27/25 In Process Culture 15:53 Ceftriaxone 1gm/50ml PHA 04/28/25 In Process (Rocephin) 09:00 Metronidazole PHA 04/27/25 In Process 500mg/100ml (Flagyl 22:00 JOSEPH MCCLELLAN RESIDENT Apr 28, 2025 09:45
[2025-04-28] MEDS: POLYETHYLENE GLYCOL 17 GM PWDR PO SCH (10:06)
[2025-04-28] MEDS: ENOXAPARIN SOD 40 MG/0.4 ML SYRINGE SC SCH (10:07)
[2025-04-28] MEDS: HYDROcodone-ACET 5/325MG TAB PO PRN (14:59)
--- NOTE | 2025-04-28 15:29 | DVHPN2 ---
Progress Note - Surgical Date Seen: Apr 28, 2025 Post op day Post op day: 1 Subjective Patient reports: Feels better (Patient feeling good this morning, no pain complaints, tolerating diet, ambulating, afebrile with vital signs stable) Review of Systems: Deferred Objective Vital signs Vital Sign Date Time Temp Pulse Resp B/P (MAP) Pulse Ox O2 Delivery O2 Flow Rate FiO2 04/28/25 13:00 98.3 74 18 107/67 (80) 100 98.3 04/28/25 08:00 Room Air* 0 21 Total Intake and Output 04/27/25 04/27/25 04/28/25 15:00 23:00 07:00 Intake Total 100 ml 150 ml Balance 100 ml 150 ml Medications Current Medications Medications Dose Ordered Sig/Lisa Route Start Time Stop Time Status Last Admin Dose Admin Sodium Chloride 10 ml Q8HR IV 04/27/25 22:00 04/28/25 14:00 10 ML Sodium Chloride 1,000 ml @ 120 mls/hr Q8H20M IV 04/27/25 16:00 04/28/25 00:20 120 MLS/HR Ondansetron HCl 4 mg Q4HP PRN IV 04/27/25 16:00 04/28/25 04:46 4 MG Enoxaparin Sodium 40 mg DAILY SC 04/28/25 10:00 04/28/25 10:07 40 MG Ceftriaxone Sodium 50 ml @ 100 mls/hr DAILY@09 IV 04/28/25 09:00 04/28/25 10:07 100 MLS/HR Metronidazole 100 ml @ 100 mls/hr Q8HR IV 04/27/25 22:00 04/28/25 05:10 100 MLS/HR Acetaminophen 650 mg Q6HR PO 04/28/25 00:00 04/28/25 05:10 650 MG Ibuprofen 600 mg TID PO 04/27/25 22:00 Acetaminophen/ Hydrocodone Bitart 1 tab Q6HP PRN PO 04/27/25 18:15 Polyethylene Glycol 17 gm DAILY PO 04/28/25 10:00 04/28/25 10:06 17 GM Acetaminophen/ Hydrocodone Bitart 1 tab Q6HPRN PRN PO 04/27/25 21:00 Laboratory Laboratory Tests 04/28/25 06:47 Test 04/28/25 06:47 Range/Units Serum Glucose 125 H 74-106 mg/dL Microbiology Date/Time Source Procedure Growth Status 04/27/25 11:49 Voided Urine Urine Culture - Preliminary Resulted Examination: GENERAL:Normal, ABDOMEN:Normal (Incision sites with Steri-Strips in place, incisions without erythema/edema/pus/drainage, soft, depressible, mild right lower quadrant tenderness, no rebound, no guarding) Labs and/or images reviewed: Labs reviewed by me (Leukocytosis normalized) Problem List/Assessment/Plan Problems: (1) Appendicitis Assessment and Plan Mrs. Lindsay is a 39-year-old female who presented yesterday to the hospital with acute appendicitis, she is currently postop day 1 from laparoscopic appendectomy. The appendix was found to be acutely inflamed without gangrene or perforation. Patient is doing well this morning, afebrile with vital signs stable. Leukocytosis has normalized. She is tolerating diet, ambulating, and with adequate pain control. Patient should be able to be discharged home today. 1. Okay to discharge per surgical standpoint 2. Follow-up with Dr. Tate at [facility] in 2 weeks. 3. No lifting more than 10 lb for 6-8 weeks 4. May shower today 5. Soap and water it is okay to run over incision sites 6. No swimming or bathing for 2 weeks 7. Diet as tolerated 8. Recommend for pain control [place] 5/325 mg p.o. every 6 hours p.r.n. pain severe 9. For baseline pain control: Tylenol 650 mg p.o. every 6 hours and ibuprofen 600 mg p.o. every 6 hours 10. Recommend MiraLax daily while taking narcotics My Orders My Orders Orders - SHOLA RIOS MD Procedure Category Date Status Time Obtain Consent For: ORDERS 04/27/25 Transmitted 16:27 Obtain Consent For CHATO 04/27/25 In Process Anesthesia 16:27 Acetaminophen Tablet PHA 04/28/25 In Process (Tylenol Tablet) 00:00 Ibuprofen Tablet PHA 04/27/25 In Process (Motrin Tablet) 22:00 Hydrocodone-Acet PHA 04/27/25 In Process 10/325mg Tab ([place] 18:15 Polyethylene Glycol PHA 04/28/25 In Process 17g Powder (Miralax 10:00 Hydrocodone-Acet PHA 04/27/25 In Process 5/325mg Tab ([place] 21:00 Regular Diet DIET 04/28/25 Transmitted Breakfast Plan discussed with Plan discussed with: Patient Visit Coding Surgery Date of Service if different f: Apr 28, 2025 Billing Provider: SHOLA RIOS MD Surgery Visit Codes: [id number] INP/OBS CARE(HIGH) SHOLA RIOS MD Apr 28, 2025 15:28
[2025-04-29 01:00] VITALS: BP 92/68; PULSE 70; RESP 16; TEMP 98; O2SAT 92
[2025-04-29 05:00] VITALS: BP 100/68; PULSE 60; RESP 16; TEMP 97.9; O2SAT 96
[2025-04-29 07:05] LABS: Alanine Aminotransferase < 9 U/L (7-40); Albumin 3.3 g/dL (3.2-4.8); Alkaline Phosphatase 51 U/L (46-116); Anion Gap 8 (5-15); BUN/Creatinine Ratio 14.5 (10.0-20.0); Blood Urea Nitrogen 10 mg/dL (9-23); Calcium 8.0 mg/dL (8.7-10.4); Carbon Dioxide 21 mmol/L (20-31); Chloride 112 mmol/L (98-107); Glucose 94 mg/dL (74-106); Potassium 3.8 mmol/L (3.5-5.1); Sodium 141 mmol/L (136-145); Total Protein 5.5 g/dL (5.7-8.2)
[2025-04-29 07:06] LABS: Bilirubin, Total 0.3 mg/dL (0.2-1.0)
[2025-04-29 07:11] LABS: Hematocrit 31.5 % (36.0-46.0); Hemoglobin 10.9 g/dL (12.2-16.2); Mean Corpuscular Hemoglobin 31.3 pg (28.0-32.0); Mean Corpuscular Volume 90.7 fL (80.0-100.0); Nucleated Red Blood Cells % 0.0 %
[2025-04-29 09:00] VITALS: BP 100/58; PULSE 77; RESP 20; TEMP 97.7; O2SAT 97
[2025-04-29] MEDS ORDERED: AUG875T PO (12:24)
[2025-04-29 13:00] VITALS: BP 105/66; PULSE 50; RESP 20; TEMP 97.2; O2SAT 92
[2025-04-29 14:08] VITALS: TEMP 36.2
--- NOTE | 2025-04-29 15:47 | DVHDSRES ---
Discharge Summary Date of Admission Resident Creating Document: JOSEPH MCCLELLAN RESIDENT Apr 27, 2025 at 15:47 Date of Discharge: Apr 29, 2025 Admitting Diagnosis Acute appendicitis Labs/Diagnostic Data: Laboratory Results Test 04/29/25 06:11 04/27/25 19:43 04/27/25 16:44 04/27/25 12:57 White Blood Count 7.9 10^3/uL (4.4-10.8) Red Blood Count 3.47 10^6/uL (4.0-5.20) Hemoglobin 10.9 g/dL (12.2-16.2) Hematocrit 31.5 % (36.0-46.0) Mean Corpuscular Volume 90.7 fL (80.0-100.0) Mean Corpuscular Hemoglobin 31.3 pg (28.0-32.0) Mean Corpuscular Hemoglobin Concent 34.5 g/dL (32.0-36.0) Red Cell Distribution Width 14.3 % (11.8-14.3) Platelet Count 221 10^3/uL (140-450) Mean Platelet Volume 8.2 fL (6.9-10.8) Neutrophils (%) (Auto) 57.8 % (37.0-80.0) Lymphocytes (%) (Auto) 35.4 % (10.0-50.0) Monocytes (%) (Auto) 5.7 % (0.0-12.0) Eosinophils (%) (Auto) 0.5 % (0.0-7.0) Basophils (%) (Auto) 0.6 % (0.0-2.0) Neutrophils # (Auto) 4.6 10 ^3/uL (1.6-8.6) Lymphocytes # (Auto) 2.8 10 ^3/uL (0.4-5.4) Monocytes # (Auto) 0.4 10 ^3/uL (0-1.3) Eosinophils # (Auto) 0 10 ^3/uL (0-0.8) Basophils # (Auto) 0 10 ^3/uL (0-0.2) Nucleated Red Blood Cells 0.0 % Sodium Level 141 mmol/L (136-145) Potassium Level 3.8 mmol/L (3.5-5.1) Chloride Level 112 mmol/L (98-107) Carbon Dioxide Level 21 mmol/L (20-31) Anion Gap 8 (5-15) Blood Urea Nitrogen 10 mg/dL (9-23) Creatinine 0.69 mg/dL (0.550-1.02) Glomerular Filtration Rate Calc 113 mL/min (>90) BUN/Creatinine Ratio 14.5 (10.0-20.0) Serum Glucose 94 mg/dL (74-106) Calcium Level 8.0 mg/dL (8.7-10.4) Total Bilirubin 0.3 mg/dL (0.2-1.0) Aspartate Amino Transferase (AST) 15 U/L (13-40) Alanine Aminotransferase (ALT) < 9 U/L (7-40) Alkaline Phosphatase 51 U/L (46-116) Total Protein 5.5 g/dL (5.7-8.2) Albumin 3.3 g/dL (3.2-4.8) Magnesium Level 1.7 mg/dL (1.6-2.6) Lipase 30 U/L (12-53) Plasma/Serum Blood Alcohol < 3.0 mg/dL (<10) Lactic Acid Level 1.0 mmol/L (0.4-2.0) Prothrombin Time 10.5 sec (9.3-11.8) Prothrombin Time INR 0.99 (0.9-1.15) Activated Partial Thromboplast Time 32.9 SEC (24.5-34.5) Thyroid Stimulating Hormone (TSH) 1.69 uIU/mL (0.55-4.78) Beta HCG, Quantitative < 0.0 mIU/mL (1.5-4.2) Test 04/27/25 11:49 Urine Color Light-yellow (Yellow) Urine Clarity Turbid (Clear) Urine pH 7.5 (5.0-9.0) Urine Specific [place] 1.020 (1.001-1.035) Urine Protein Negative (Negative) Urine Ketones 1+ (Negative) Urine Blood 3+ /uL (Negative) Urine Nitrite Negative (Negative) Urine Bilirubin Negative (Negative) Urine Urobilinogen Normal mg/dL (Negative) Urine Leukocyte Esterase 1+ /uL (Negative) Urine RBC 4 /hpf (0 - 4) Urine Microscopic WBC 8 /HPF (0-5) Urine Squamous Epithelial Cells Mod /hpf (<5) Urine Bacteria None seen /hpf (None Seen) Urine Glucose Normal mg/dL (Normal) Urine Opiates Screen Neg (NEGATIVE) Urine Fentanyl Screen Neg (NEGATIVE) Urine Barbiturates Screen Neg (NEGATIVE) Urine Phencyclidine Screen Neg (NEGATIVE) Urine Amphetamines Screen Neg (NEGATIVE) Urine Benzodiazepines Screen Neg (NEGATIVE) Urine Cocaine Screen Neg (NEGATIVE) Urine Cannabinoids Screen Pos (NEGATIVE) Other Laboratory Tests 04/29/25 06:11 Brief Hx & Hospital Course: Radha Lindsay is a 13-year-old female with no significant past medical history who presented to the emergency department with severe epigastric abdominal pain radiating to the back, which began at 3:00 a.m. following the consumption of greasy food the previous evening. The pain was associated with severe nausea but no vomiting. Initial evaluation raised concern for possible acute appendicitis and probable systemic inflammatory response syndrome (SIRS) with reactive leukocytosis. CT of the abdomen and pelvis revealed a slightly dilated appendix measuring up to 8 mm with an appendicolith at the base, suggesting low-grade appendicitis. The patient was admitted to the medical-surgical unit and managed supportively with morphine and Zofran. She received antibiotic therapy with Rocephin and Flagyl and underwent a laparoscopic appendectomy without complications. Postoperatively, she tolerated an advanced diet and was able to pass gas. Additional concerns included class I obesity (BMI 32), for which she was counseled on lifestyle modifications including diet and exercise. She was also counseled for over 17 minutes regarding marijuana use disorder and advised on cessation strategies. GI prophylaxis with Protonix and VTE prophylaxis with Lovenox were administered during hospitalization. The patients condition improved, she remained hemodynamically stable, and was deemed fit for discharge with optimal medical therapy. She was advised to follow up with the discharge clinic and surgery clinic in two weeks and to continue healthy lifestyle practices and substance use cessation as discussed and agreed upon. Pt is lying on bed General Appearance: Alert, Oriented X3, Cooperative, Not in acute distress HEENT: Atraumatic, Mucous membranes moist/pink Respiratory: Clear to auscultation, Normal air movement, No added sounds Cardiovascular: Regular rate, Normal S1, Normal S2, No murmurs Abdominal: Generalized abdominal tenderness, intact laparoscopic wound ramos without infection/inflammation. Active bowel sounds, Soft, Extremities: No edema, Normal pulses, No tenderness/swelling Skin: No Significant rash, except past surgical scars Neuro: Normal speech, sensorimotor deficits none Psych/Mental Status: Mental status NL, Mood NL Nurse was there as interviewing clerk during examination Discharge plan: Augmentin 2 times daily for 3 days Follow up with the PCP and discharge Clinic Follow-up with Dr. Tate at [facility] in 2 weeks. No lifting more than 10 lb for 6-8 weeks Diet as tolerated For baseline pain control: Tylenol and ibuprofen p.o. every 6 hours Operations or Procedures Operative Report - 2 Report Details Date:04/27/25 Preop Diagnosis:Acute appendicitis Postop Diagnosis: Same Surgeon:Richard Bradford MD Instrument Checker:Albino White NP Anesthesiologist:Dr. Crow Anesthesia: General Consent:The patient was informed of the risks and benefits of the procedure. These include but are not limited to complications of anesthesia, postoperative infection, incomplete relief of symptoms, recurrence of symptoms, damage to blood vessels, nerves and tendons, deep venous thrombosis, pulmonary embolism and possible need for repeat surgery in the future. Complications:None Estimated Blood Loss:5 mL Findings:Acutely inflamed appendix, not perforated, non gangrenous, Indications for Surgery:Acute appendicitis with appendicolith on imaging Name of Procedure PerformedLaparoscopic appendectomy Procedure DetailsProcedure Details: Upon arriving to the operating room the patient was transferred to the operating table and placed in the supine position with arms extended. General endotracheal anesthesia was induced. Time-out was observed. Patient was prepped and draped in the standard sterile surgical fashion with chlorhexidine. I 1st made an infraumbilical curvilinear incision. I then bluntly dissected down the umbilical stalk to the fascia. Umbilical stalk was walked down using Mariel clamps, and once at its base I entered the peritoneal cavity using Alvin technique. I then placed a [id number] suture at the fascial defect, with 0 Vicryl. I then inserted the Alvin cannula and insufflated the peritoneal cavity to 15 mmHg with toleration. Camera was then inserted into the peritoneal cavity and cavity was surveyed for any gross pathology. None was immediately noticeable. I then placed 2 additional 5 mm trocars at the suprapubic area and the left lower quadrant. Patient was then placed in the Trendelenburg position with the right side up. Small bowel was swept aside and the leaf of Treves was identified. The base of the appendix was then grasped. The appendix appeared to be acutely inflamed in the distal 3rd of the appendix was very indurated. There was no gangrene or perforation of the appendix. I then proceeded to make a mesenteric rent at the base of the appendix. I then stapled off the base of the appendix with a 45 mm white load x2, Endo-AGUSTIN. I then stapled off the mesoappendix with a 45 mm white load, Endo-AGUSTIN. The appendix was then placed in the Endo-Catch bag and removed from the peritoneal cavity. I then proceeded to inspect the staple lines, and noted some slow oozing coming from the mesenteric staple line. I placed several 10 mm clips along the mesenteric staple line. Hemostasis was achieved. I then surveyed the pelvis and there was minimal inflammatory fluid in the pelvis that was suctioned. I then made a 2nd look at the staple lines, both of them were intact and no bleeding was observed. At this point we concluded the operation. All counts complete and correct. I then removed the 2, 5 mm trocars under direct visualization. The abdominal cavity was allowed to desufflate. I then closed the previously placed fascial retention suture, fascia was successfully reapproximated. All skin incisions were closed with 4-0 Monocryl, Dermabond, and Steri-Strips. Patient tolerated the procedure well was transferred to PACU in stable condition. Condition Stable RICHARD RIOS MD Apr 27, 2025 18:28 DICTATED BY:RICHARD RIOS MD DICTATED DATE/TIME:04/27/251827 ELECTRONICALLY SIGNED BY:RICHARD RIOS MD 04/27/251827 ELECTRONICALLY CO-SIGNED BY: -------- EXAM: CT CT AB PEL WO CON-NO ORAL OR IV IMPRESSION: 1. Question low-grade appendicitis. Condition at Discharge: Stable Final Diagnosis/Problems List # Acute appendicitis # ruled out SIRS, leukocytosis likely due to reactive # Obesity class 1 with a BMI 32, # Marijuana use disorder, c Discharge Disposition: Home Discharge Instruct/Medications Diet: Regular Activity: No Restrictions, As Tolerated Follow Up/Referral: PCP [facility] in 1-2 weeks Medications: Augmentin 2 times daily for 3 days Scheduled Amoxicillin & Pot Clavulanate (Augmentin Tablet), 875 MG PO BID Discharge Statement: "Patient was advised to return to the ER or call 911 if any headaches, dizziness, shortness of breath, chest pain, abdominal pain, bleeding, fevers, or worsening of medical condition. Patient was counseled about treatment plan, medications, possible side effects, patientverbalized understanding. All questions were answered to the best of my ability. This discharge took greater then 30 minutes in planning, reviewing documentation, counseling the patient, and discussing with other team members." ASSESSMENT ASSESSMENT Assessment # Possible acute appendicitis # ruled out SIRS, leukocytosis likely due to reactive # Obesity class 1 with a BMI 32, # Marijuana use disorder, c JOSEPH MCCLELLAN RESIDENT Apr 29, 2025 15:47
== END 2025-04-29 14:40 | disposition home or self-care (01) | DRG 399 ==
LOC: ER 11:17 → OVERFLOW 15:47 → WEST WING 20:05
PROVIDERS: ADMIT Student in an Organized Health Care Education/Training Program; ATTEND Student in an Organized Health Care Education/Training Program
PROC: 0DTJ0ZZ Resection of Appendix, Open Approach (ICD-10-PCS; principal; 2025-04-27 17:00)
DX: K35.80 Unspecified acute appendicitis (principal); E66.9 Obesity, unspecified; F12.90 Cannabis use, unspecified, uncomplicated; Z68.34 Body mass index [BMI] 34.0-34.9, adult
CPT/HCPCS: 36415; 71045; 74176; 80053; 80307; 80320; 81001; 83605; 83690; 83735; 84443; 84702; 85025; 85610; 85730; 86850; 86900; 86901; 87086; 96365; 96375; G0378; J0131; J0694; J1100; J1885; J2003; J2250; J2405; J2704; J3490